=== PATIENT | male | born 1990 ===

== ENCOUNTER 2019-06-18 16:42 | Inpatient (IN) | payer OTHER ==
[~2019-06-18] VITALS: Ht 177.8 cm; Wt 77.1 kg
[2019-06-18 17:40] LABS: BASOPHILS % (AUTO) 0.4 % (0.0-2.0); EOSINOPHILS % (AUTO) 1.1 % (1.0-6.0); HEMATOCRIT 49.3 % (41-53); LYMPHOCYTES % (AUTO) 33.8 % (22.0-44.0); MEAN CORPUSCULAR HEMOGLOBIN 31.2 pg (26.0-34.0); MEAN CORPUSCULAR HGB CONC 34.5 G/dL (31.0-37.0); MEAN CORPUSCULAR VOLUME 90 fL (80-100); MONOCYTES # (AUTO) 0.4 K/uL (0.1-1.0); MONOCYTES % (AUTO) 7.4 % (2.0-9.0); NEUTROPHILS # (AUTO) 3.4 K/uL (1.8-7.7); NEUTROPHILS % (AUTO) 57.3 % (40.0-70.0); PLATELET COUNT (AUTO) 305 K/uL (150-450); RED BLOOD CELL COUNT(AUTO) 5.46 MIL/uL (4.50-5.90); RED CELL DISTRIBUTION WIDTH 13.4 % (11.5-14.5)
[2019-06-18 17:50] LABS: ANION GAP 5 mmol/L (8-16); CALCIUM, TOTAL 9.6 mg/dL (8.8-10.5); CARBON DIOXIDE 32 mmol/L (22-29); CHLORIDE 101 mmol/L (98-107); CREATININE 1.15 mg/dL (0.60-1.30); GLOMERULAR FILTR. RATE CALC > 60 mL/min (>60); GLUCOSE,RANDOM 105 mg/dL (70-110); POTASSIUM 4.2 mmol/L (3.5-5.1); SODIUM SERUM 138 mmol/L (136-145); UREA NITROGEN, BLOOD 13 mg/dL (7-18)
[2019-06-18 18:04] LABS: ALANINE AMINOTRANSFERASE 29 U/L (12-78); ALBUMIN 4.1 g/dL (3.4-5.0); ALKALINE PHOSPHATASE 74 U/L (46-116); ASPARTATE AMINOTRANSFERASE 22 U/L (15-37); BILIRUBIN,TOTAL 0.8 mg/dL (0.1-1.0); TOTAL PROTEIN, SERUM 7.5 g/dL (6.4-8.2)
[2019-06-18 18:33] LABS: AMPHET/METH SCREEN,URINE NEGATIVE (NEGATIVE); BARBITURATE SCREEN, URINE NEGATIVE (NEGATIVE); BENZODIAZEPINES SCREEN,URINE NEGATIVE (NEGATIVE); CANNABINOID SCREEN,URINE POSITIVE (NEGATIVE); COCAINE SCREEN,URINE NEGATIVE (NEGATIVE); METHADONE SCREEN, URINE NEGATIVE (NEGATIVE)
[2019-06-18 18:34] LABS: PHENCYCLIDINE SCREEN,URINE NEGATIVE (NEGATIVE)
[2019-06-18 18:41] LABS: OPIATE SCREEN,URINE NEGATIVE (NEGATIVE)
[2019-06-18 18:57] VITALS: BP 120/76
[2019-06-18 20:36] VITALS: BP 117/73
[2019-06-18] MEDS ORDERED: DOCUSATE SODIUM 100 MG CAPSULE PO PRN (21:30)
[2019-06-18] MEDS ORDERED: ONDANSETRON HCL 4 MG/2 ML VIAL IVP PRN (21:30)
[2019-06-18] MEDS ORDERED: ZOLPIDEM TARTRATE 5 MG TABLET PO PRN (21:30)
[2019-06-18] MEDS ORDERED: 0.9% SODIUM CHLORIDE 10 ML SYRINGE IVP PRN (21:30)
[2019-06-18] MEDS ORDERED: ACETAMINOPHEN 325 MG TABLET PO PRN (21:30)
[2019-06-18] MEDS: LORazepam 1 MG TABLET PO PRN (21:59)
[2019-06-18 23:44] VITALS: BP 114/70
[2019-06-19 05:25] VITALS: BP 102/64
[2019-06-19 06:22] LABS: BASOPHILS % (AUTO) 0.4 % (0.0-2.0); EOSINOPHILS % (AUTO) 2.5 % (1.0-6.0); HEMATOCRIT 49.2 % (41-53); LYMPHOCYTES # (AUTO) 3.3 K/uL (1.0-4.8); LYMPHOCYTES % (AUTO) 39.9 % (22.0-44.0); MEAN CORPUSCULAR HEMOGLOBIN 31.3 pg (26.0-34.0); MEAN CORPUSCULAR HGB CONC 34.6 G/dL (31.0-37.0); MEAN CORPUSCULAR VOLUME 90 fL (80-100); MONOCYTES # (AUTO) 0.6 K/uL (0.1-1.0); NEUTROPHILS # (AUTO) 4.2 K/uL (1.8-7.7); NEUTROPHILS % (AUTO) 50.2 % (40.0-70.0); PLATELET COUNT (AUTO) 295 K/uL (150-450); RED BLOOD CELL COUNT(AUTO) 5.45 MIL/uL (4.50-5.90); RED CELL DISTRIBUTION WIDTH 13.3 % (11.5-14.5)
[2019-06-19 06:32] LABS: ANION GAP 7 mmol/L (8-16); CALCIUM, TOTAL 8.8 mg/dL (8.8-10.5); CARBON DIOXIDE 31 mmol/L (22-29); CHLORIDE 103 mmol/L (98-107); CREATININE 1.25 mg/dL (0.60-1.30); GLOMERULAR FILTR. RATE CALC > 60 mL/min (>60); GLUCOSE,RANDOM 93 mg/dL (70-110); SODIUM SERUM 141 mmol/L (136-145); UREA NITROGEN, BLOOD 14 mg/dL (7-18)
[2019-06-19] MEDS: PANTOPRAZOLE SODIUM 40 MG DR TABLET PO SCH (08:24)
[2019-06-19] MEDS: LORazepam 1 MG TABLET PO PRN ×2 (08:24→12:31)
[2019-06-19 08:28] VITALS: BP 126/73
[2019-06-19 11:46] VITALS: BP 146/80
[2019-06-19 15:55] VITALS: BP 121/62
[2019-06-19] MEDS ORDERED: OLANZapine 10 MG RAPDIS TABLET PO ONE (17:15)
[2019-06-19] MEDS: HydrOXYzine PAMOATE 50 MG CAPSULE PO PRN (17:52)
[2019-06-19] MEDS ORDERED: OLANZapine 10 MG RAPDIS TABLET PO SCH (21:00)
[2019-06-20 05:00] VITALS: BP 131/77
[2019-06-20 07:50] VITALS: BP 129/71
[2019-06-20] MEDS: PANTOPRAZOLE SODIUM 40 MG DR TABLET PO SCH (07:59)
[2019-06-20] MEDS: OLANZapine 10 MG RAPDIS TABLET PO SCH ×2 (07:59→21:24)
[2019-06-20] MEDS: LORazepam 1 MG TABLET PO PRN ×4 (07:59→23:04)
[2019-06-20] MEDS: HydrOXYzine PAMOATE 50 MG CAPSULE PO PRN ×3 (08:54→21:24)
[2019-06-20 12:01] VITALS: BP 115/62
[2019-06-20 21:02] VITALS: BP 101/64
[2019-06-21 08:00] VITALS: BP 104/88
[2019-06-21] MEDS: OLANZapine 10 MG RAPDIS TABLET PO SCH ×2 (08:45→21:01)
[2019-06-21] MEDS: PANTOPRAZOLE SODIUM 40 MG DR TABLET PO SCH (08:45)
[2019-06-21 11:51] VITALS: BP 118/59
[2019-06-21] MEDS: LORazepam 1 MG TABLET PO PRN (12:39)
[2019-06-21 14:16] VITALS: BP 137/75
[2019-06-21] MEDS: DIVALPROEX SODIUM 500 MG DR TABLET PO SCH ×2 (14:23→21:02)
[2019-06-21 16:44] VITALS: BP 115/81
[2019-06-21 20:04] VITALS: BP 126/74
[2019-06-22 00:05] VITALS: BP 110/76
[2019-06-22 05:27] VITALS: BP 120/66
[2019-06-22 07:28] VITALS: BP 106/61
[2019-06-22] MEDS: DIVALPROEX SODIUM 500 MG DR TABLET PO SCH ×2 (08:13→20:10)
[2019-06-22] MEDS: OLANZapine 10 MG RAPDIS TABLET PO SCH ×2 (08:13→20:10)
[2019-06-22] MEDS: PANTOPRAZOLE SODIUM 40 MG DR TABLET PO SCH (08:13)
[2019-06-22 15:46] VITALS: BP 115/67
[2019-06-22] MEDS: LORazepam 1 MG TABLET PO PRN (16:15)
[2019-06-22 20:05] VITALS: BP 121/81
[2019-06-23 00:04] VITALS: BP 122/71
[2019-06-23 07:15] VITALS: BP 101/57
[2019-06-23] MEDS: OLANZapine 10 MG RAPDIS TABLET PO SCH ×2 (08:07→20:47)
[2019-06-23] MEDS: PANTOPRAZOLE SODIUM 40 MG DR TABLET PO SCH (08:07)
[2019-06-23] MEDS: DIVALPROEX SODIUM 500 MG DR TABLET PO SCH ×2 (08:07→20:47)
[2019-06-23 11:09] VITALS: BP 110/56
[2019-06-23 15:02] VITALS: BP 102/62
[2019-06-23] MEDS: HALOPERIDOL 5 MG TABLET PO PRN (17:33)
[2019-06-23] MEDS: LORazepam 1 MG TABLET PO PRN (18:54)
[2019-06-23 20:15] VITALS: BP 107/72
[2019-06-24 07:31] VITALS: BP 116/64
[2019-06-24] MEDS: OLANZapine 10 MG RAPDIS TABLET PO SCH (08:57)
[2019-06-24] MEDS: PANTOPRAZOLE SODIUM 40 MG DR TABLET PO SCH (08:57)
[2019-06-24] MEDS: DIVALPROEX SODIUM 500 MG DR TABLET PO SCH (08:57)
[2019-06-24] MEDS ORDERED: DIVA-78 PO (10:33)
[2019-06-24] MEDS ORDERED: OLAN10TA6 PO (10:34)
[2019-06-24] MEDS ORDERED: ACET-2247 PO (10:35)
[2019-06-24] MEDS ORDERED: DOCU-275 PO (10:36)
[2019-06-24] MEDS ORDERED: HYDR50CA9 PO (10:41)
[2019-06-24 11:32] VITALS: BP 98/63
[2019-06-24] MEDS: LORazepam 1 MG TABLET PO PRN (12:31)
[2019-06-24 15:31] VITALS: BP 103/61
[2019-06-24] MEDS: HALOPERIDOL 5 MG TABLET PO PRN (15:56)
[2019-06-24] MEDS: HydrOXYzine PAMOATE 50 MG CAPSULE PO PRN (17:03)
== END 2019-06-24 17:07 | DRG 885 ==
LOC: EMS 16:44 → 6S 18:54
PROVIDERS: ADMIT Internal Medicine; ATTEND Internal Medicine
DX: F20.0 Paranoid schizophrenia (principal); R45.851 Suicidal ideations; F12.10 Cannabis abuse, uncomplicated; F17.200 Nicotine dependence, unspecified, uncomplicated; Z88.8 Allergy status to other drugs, medicaments and biological substances
CPT/HCPCS: 83735; 99406; G0480